=== PATIENT | male | born 1955 | race Caucasian/White ===

== ENCOUNTER 2024-04-27 08:01 | Emergency (ER) | payer MEDICARE, SELFPAY ==
[2024-04-27 08:06] VITALS: BP 176/89; PULSE 97; TEMP 36.8; O2SAT 99; BMI 25.0
--- NOTE | 2024-04-27 08:20 | ED_ITS ---
HPI HPI - General Adult General Chief complaint: Extremity Problem, Nontraumatic Stated complaint: POSSIBLE BLOOD CLOT IN LEFT LEG Time Seen by Provider: 04/27/24 08:18 Source: patient Mode of arrival: walk-in Limitations: no limitations History of Present Illness HPI narrative: Patient states he noticed a small painless lump on the anterior aspect of his mid left thigh this morning. When he rubbed over it it disappeared. He went for a walk and then decided to come in and get checked out. He is concerned about possible DVT. Patient has a history of hypertension and he states he has had 3 heart attacks and has 5 stents. He is on aspirin and Plavix. He does not report chest pain or shortness of breath. Related Data Home Medications ?Medication ?Instructions ?Recorded ?Confirmed atorvastatin 80 mg tablet 80 mg PO DAILY 04/27/24 04/27/24 clopidogrel 75 mg tablet 75 mg PO DAILY 04/27/24 04/27/24 lisinopril 20 mg tablet 20 mg PO DAILY 04/27/24 04/27/24 metoprolol tartrate 25 mg tablet 25 mg PO BID 04/27/24 04/27/24 Allergies Allergy/AdvReac Type Severity Reaction Status Date / Time No Known Drug Allergies Allergy Verified 04/27/24 08:06 Opioid HPI Opioid Management Most Recent Opioid Data: No Data to Display Review of Systems ROS Status of ROS 10 or more systems reviewed and unremark able except as noted in history and below PFSH PFSH Social History Little interest or pleasure in doing things: not at all Feeling down, depressed, or hopeless: not at all Exam Narrative Exam Narrative: Afebrile and nondistressed. HEENT exam is normal to inspection. Heart has regular rate and rhythm. Lung sounds are clear to auscultation bilaterally. Abdomen is soft. Patient does not have any swelling, redness or warmth over the left thigh. The location that he describes as well away from the saphenous or femoral veins and not the location of a blood clot would be expected. Skin is warm and dry. Constitutional Vital Signs, click to edit/add: Last Vital Signs Temp 98.2 F 04/27/24 08:06 Pulse 97 H 04/27/24 08:06 Resp 18 04/27/24 08:06 BP 176/89 H 04/27/24 08:06 Pulse Ox 99 04/27/24 08:06 O2 Del Method Room Air 04/27/24 08:06 Course Vital Signs Vital signs: Vital Signs Temperature 98.2 F 04/27/24 08:06 Pulse Rate 97 H 04/27/24 08:06 Respiratory Rate 18 04/27/24 08:06 Blood Pressure 176/89 H 04/27/24 08:06 Pulse Oximetry 99 04/27/24 08:06 Oxygen Delivery Method Room Air 04/27/24 08:06 Temperature 98.2 F 04/27/24 08:06 Pulse Rate 97 H 04/27/24 08:06 Respiratory Rate 18 04/27/24 08:06 Blood Pressure 176/89 H 04/27/24 08:06 Pulse Oximetry 99 04/27/24 08:06 Oxygen Delivery Method Room Air 04/27/24 08:06 Medical Decision Making MDM Narrative Medical decision making narrative: Patient is reassured that the location of the lump he fell this morning is not the site where a blood clot would be found. The lump has resolved I am unsure what caused it. He is advised to return for any worsening symptoms. Discharge Plan Discharge Chief Complaint: Extremity Problem, Nontraumatic Clinical Impression: Lump of left thigh Patient Disposition: Home, Self-Care Time of Disposition Decision: 08:19 Condition: Good Mode of Transportation: Private Vehicle Prescriptions / Home Meds: No Action clopidogrel 75 mg tablet 75 mg PO DAILY atorvastatin 80 mg tablet 80 mg PO DAILY metoprolol tartrate 25 mg tablet 25 mg PO BID lisinopril 20 mg tablet 20 mg PO DAILY Print Language: Sinhala Additional Instructions: The location of the lump that you felt this morning does not suggest any possibility of blood clot in the leg. Seek follow-up or return to the emergency department for any recurrence or worsening of symptoms.
== END 2024-04-27 08:26 | disposition home or self-care (01) ==
LOC: ER 08:24
PROVIDERS: Emergency Provider Emergency Medicine; PCP Nurse Practitioner
DX: R22.42 Localized swelling, mass and lump, left lower limb (principal); Z86.718 Personal history of other venous thrombosis and embolism; I10 Essential (primary) hypertension; Z79.01 Long term (current) use of anticoagulants
CPT/HCPCS: 36415; 85378; 99281

== ENCOUNTER 2024-04-27 14:39 | Outpatient (OUT) | payer MEDICARE, SELFPAY ==
[2024-04-27 15:13] LABS: D Dimer 0.55 mg/L FEU (<=0.59)
== END 2024-04-27 14:40 | disposition home or self-care (01) ==
LOC: LAB 14:40
PROVIDERS: PCP Nurse Practitioner; Visit Provider Nurse Practitioner
DX: R60.0 Localized edema (principal); Z86.718 Personal history of other venous thrombosis and embolism
CPT/HCPCS: 36415; 85378